=== PATIENT | male | born 1995 | race Caucasian/White ===

== ENCOUNTER 2018-03-16 11:38 | Emergency (ER) | payer BC ==
[2018-03-16] MEDS ORDERED: Adenosine 6 MG/2 ML SDV ONE ×2 (12:01→12:07)
[2018-03-16] MEDS ORDERED: Adenosine 6 MG/2 ML SDV IVPUSH ONE ×2 (12:10→12:20)
[2018-03-16 12:19] LABS: CHLORIDE,CL 104 mEq/L (98-106); SODIUM,NA 141 mEq/L (136-145)
[2018-03-16] MEDS ORDERED: Sodium Chloride 0.9% 1,000 ML ONE (12:21)
[2018-03-16] MEDS ORDERED: Sodium Chloride 0.9% 1,000 ML IV ONE (12:30)
--- NOTE | 2018-03-16 12:45 | EDM.PDOC ---
ED HPI GENERAL MEDICAL PROBLEM - General Chief Complaint: Cardiovascular Problem Stated Complaint: racing heart Time Seen by Provider: 03/16/18 12:00 Source of Information: Reports: Patient History Limitations: Reports: No Limitations - History of Present Illness INITIAL COMMENTS - FREE TEXT/NARRATIVE: Ted is a 22 year old male who presents to the ED with c/o his "heart racing." He reports starting around 11:00 today while he was at work he noticed his heart was beating very fast. He reports he has had episodes like this in the past, but normally they've gone away on their own. He reports this was lasting longer than normal, prompting his visit. He reports he has been somewhat diaphoretic since onset. He denies any chest pain, presyncope or syncope, headache, dizziness. He does report that last night he was out and did drink beer. Denies any caffeine or energy drink intake. Denies any drug use. He reports that he has been having these episodes for the past couple years. He has had 30 day event monitor from 06/02/2016 through 07/01/2016 which did not record any events. He did see Dr. Pino, cardiology back in August 2017. He reports at that time he was told they would follow up regarding plan, but patient reports he has not heard anything. Patient reports he did have echocardiogram in August, which was normal per his report. He reports since he was seen in August 2017, he has had 3-4 episodes of palpitations, which have all resolved without seeking medical attention. Onset: Today, Sudden - Related Data Allergies Allergy/AdvReac Type Severity Reaction Status Date / Time Penicillins Allergy Cannot Verified 03/16/18 12:21 Remember Pertussis Vaccines Allergy Cannot Verified 03/16/18 12:21 Remember Home Meds: Home Meds Metoprolol Succinate [Toprol XL] 25 mg PO DAILY #30 tab.er 03/16/18 [Rx] ED ROS GENERAL - Review of Systems Review Of Systems: See Below Constitutional: Reports: Diaphoresis. Denies: Fever, Chills, Malaise, Weakness , Fatigue, Decreased Appetite HEENT: Reports: No Symptoms Respiratory: Reports: No Symptoms. Denies: Shortness of Breath, Wheezing, Pleuritic Chest Pain, Cough, Sputum, Hemoptysis Cardiovascular: Reports: Palpitations. Denies: Chest Pain, Dyspnea on Exertion , Edema, Lightheadedness, Orthopnea, Syncope Endocrine: Reports: No Symptoms GI/Abdominal: Reports: No Symptoms. Denies: Abdominal Pain, Constipation, Diarrhea, Nausea, Vomiting : Reports: No Symptoms. Denies: Dysuria, Frequency, Urgency Musculoskeletal: Reports: No Symptoms Skin: Reports: Diaphoresis Neurological: Reports: No Symptoms. Denies: Confusion, Dizziness, Headache, Numbness, Syncope, Tingling, Weakness Psychiatric: Reports: No Symptoms Hematologic/Lymphatic: Reports: No Symptoms Immunologic: Reports: No Symptoms ED EXAM, GENERAL - Physical Exam Exam: See Below Exam Limited By: No Limitations General Appearance: Alert, WD/WN, No Apparent Distress Eye Exam: Bilateral Eye: EOMI, Normal Fundi, Normal Inspection, PERRL Throat/Mouth: Normal Inspection, Normal Lips, Normal Teeth, Normal Gums, Normal Oropharynx, Normal Voice, No Airway Compromise Head: Atraumatic, Normocephalic Neck: Normal Inspection, Supple, Non-Tender, Full Range of Motion Respiratory/Chest: No Respiratory Distress, Lungs Clear, Normal Breath Sounds, No Accessory Muscle Use, Chest Non-Tender Cardiovascular: Normal Peripheral Pulses, No Edema, No Gallop, No JVD, No Murmur , No Rub, Tachycardia GI/Abdominal: Normal Bowel Sounds, Soft, Non-Tender, No Organomegaly, No Distention, No Abnormal Bruit, No Mass Extremities: Normal Inspection, Normal Range of Motion, Non-Tender, Normal Capillary Refill, No Pedal Edema Neurological: Alert, Oriented, CN II-XII Intact, Normal Cognition, Normal Gait, Normal Reflexes, No Motor/Sensory Deficits Psychiatric: Normal Affect, Normal Mood Skin Exam: Warm, Intact, Diaphoretic, Other (flushed face) Lymphatic: No Adenopathy Course - Vital Signs Last Recorded V/S: Last Vital Signs Temp 99.1 F 03/16/18 11:54 Pulse 103 H 03/16/18 12:45 Resp 16 03/16/18 12:45 BP 149/96 H 03/16/18 12:45 Pulse Ox 97 03/16/18 12:45 - Orders/Labs/Meds Labs: Laboratory Tests 03/16/18 03/16/18 Range/Units 11:56 11:56 WBC 4.1 L (5.0-10.0) 10^3/uL RBC 5.24 (4.50-6.00) 10^6/uL Hgb 16.2 (14.0-18.0) g/dL Hct 46.2 (40.0-54.0) % MCV 88.2 (82.0-94.0) fL MCH 30.9 (27.0-32.0) pg MCHC 35.1 (33.0-38.0) g/dL RDW Coeff of [place] 13.0 (11.0-15.0) % Plt Count 175 (150-400) 10^3/uL Neut % (Auto) 51.5 (35-85) % Lymph % (Auto) 35.8 (10-55) % [place] % (Auto) 8.3 (0-16) % Eos % (Auto) 3.9 (0-5) % Baso % (Auto) 0.5 (0-3) % Neut # (Auto) 2.10 (1.80-7.00) 10^3/uL Lymph # (Auto) 1.46 (1.00-4.80) 10^3/uL [place] # (Auto) 0.34 (0.00-0.80) 10^3/uL Eos # (Auto) 0.16 (0.00-0.45) 10^3/uL Baso # (Auto) 0.02 10^3/uL Sodium 141 (136-145) mEq/L Potassium 3.6 (3.5-5.0) mEq/L Chloride 104 (98-106) mEq/L Carbon Dioxide 24 (21-32) mmol/L BUN 19 H (7-18) mg/dL Creatinine 1.0 (0.7-1.3) mg/dL Est Cr Clr Drug Dosing 125.02 mL/min Estimated GFR (MDRD) > 60 (>=60) mL/min Glucose 91 (75-99) mg/dL Calcium 9.1 (8.4-10.1) mg/dL TSH, Ultra Sensitive 1.78 (0.36-5.60) uIU/mL Meds: Medications Discontinued Medications Generic Name Dose Route Start Last Admin Trade Name Freq PRN Reason Stop Dose Admin Adenosine 6 mg 03/16/18 12:10 03/16/18 12:14 Adenocard IVPUSH 03/16/18 12:11 6 mg NOW ONE Administration Adenosine Confirm 03/16/18 12:01 03/16/18 12:15 Adenocard Administered 03/16/18 12:02 Not Given Dose 6 mg .ROUTE .STK-MED ONE Adenosine 12 mg 03/16/18 12:20 03/16/18 12:25 Adenocard IVPUSH 03/16/18 12:21 12 mg NOW ONE Administration Adenosine Confirm 03/16/18 12:07 03/16/18 12:25 Adenocard Administered 03/16/18 12:08 Not Given Dose 12 mg .ROUTE .STK-MED ONE Sodium Chloride Confirm 03/16/18 12:21 03/16/18 13:17 Normal Saline Administered 03/16/18 12:22 Not Given Dose 1,000 mls @ as directed .ROUTE .STK-MED ONE Sodium Chloride 1,000 mls @ 999 mls/hr 03/16/18 12:30 03/16/18 12:35 Normal Saline IV 03/16/18 13:30 999 mls/hr .BOLUS ONE Administration - Re-Assessments/Exams Free Text/Narrative Re-Assessment/Exam: 03/16/18 12:10 Administered 6 mg adenosine. No change in pulse. HR remains 180's-190's. 03/16/18 12:20 Administered 12 mg adenosine. Pulse initially down to 130's. Gradual decreased to 90s'-100's. 1 L NS bolus started. 03/16/18 13:[address] Pino's cardiology consult note from 08/11/2017, Dr. Pino was planning to discuss with Dr. Jackson whether to proceed with EP study to look for inducible SVT with possible ablation versus loop recorder insertion. With this known SVT, patient likely needs to proceed with EP study. Consulted with [facility] nursing home admissions director light rail signal technician Dr. Syed. Discussed Dr. Pino's consult and need for visit with Dr. Jackson per his note. We will get patient set up with Dr. Jackson, electrophysiology, prior to f/u appointment on April [address] Pino. Patient scheduled for 03/23/2018 at 2 pm. Departure - Departure Time of Disposition: 14:26 Disposition: Home, Self-Care 01 Condition: Good Clinical Impression: Supraventricular tachycardia, paroxysmal Prescriptions: Metoprolol Succinate [Toprol XL] 25 mg PO DAILY #30 tab.er Instructions: Supraventricular Tachycardia, Adult, [id number] Referrals: Yeni Soto PA-C [Primary Care Provider] - Forms: ED Department Discharge Additional Instructions: 1) Metoprolol daily as directed until follow up with cardiology 2) Follow up with Dr. Jackson, network contractor, March 23 @ 2 pm in [place] [facility] 3) Follow up as scheduled with Dr. Pino April 13 4) Try to avoid alcohol and caffeine 5) Follow up with PCP for recheck 6) Return to ED for any emergent needs
== END 2018-03-16 14:37 | disposition home or self-care (01) ==
LOC: CC.ED 11:38
DX: I47.1 Supraventricular tachycardia (principal); F17.220 Nicotine dependence, chewing tobacco, uncomplicated; Z88.0 Allergy status to penicillin; Z88.7 Allergy status to serum and vaccine; Z79.899 Other long term (current) drug therapy
CPT/HCPCS: 36415; 80048; 84443; 85025; 93005; 96365; 96374; 96375; 99285; J0153; J7030